=== PATIENT | female | born 1985 | race Caucasian/White ===

== ENCOUNTER 2024-01-26 10:44 | Emergency (ER) | payer OTHER, SELFPAY ==
[2024-01-26 10:59] VITALS: BP 155/111
[2024-01-26 11:22] VITALS: BP 125/95
--- NOTE | 2024-01-26 11:25 | ED.GENMED ---
History of Present Illness
General
Chief Complaint: Heart Rate Problem
Source: patient
Time Seen by Provider: 01/26/24 11:07
History of Present Illness
History of Present Illness:
38yoF with no significant past medical history presenting for evaluation of palpitations. Patient woke up this morning around 7:30am feeling aware of her heart beat and feeling like her heart was racing. She received an alert from her Apple Watch
stating that she was in atrial fibrillation. She went to the nearest urgent care who performed an EKG which confirmed atrial fibrillation. She was sent to the ED for evaluation. Patient is now asymptomatic and states her palpitations have resolved.
Symptoms lasted for about 2.5 hours in total. She denies any associated chest pain, dizziness, syncope.
Patient drank 1 glass of wine last night. She has been at a conference for the past 3 days and has had long days and more stress than usual. She had a similar episode of palpitations 1 week ago which she attributed to drinking an energy drink. She
was seen by a bucket pusher in 2016 for palpitations. She had a Holter monitor at that time which was normal. Her only medication is an oral contraceptive.
Phy Exam
General Physical Exam
General Presentation: well appearing and no apparent distress
General age: appears stated age
General Skin: warm and dry
General Habitus: normal
General Mental: alert
General Hydration: appears well hydrated
ENT Exam
ENT Exam: normocephalic
Cardiovascular Exam
Cardiovascular Exam: regular rate/rhythm, no edema and no murmur
Pulmonary Exam
Pulmonary Exam: lungs clear, no respiratory distress, no rales, no crackles, no rhonchi and no wheezing
[place] Coma Scale
Eye Opening: Spontaneous
Verbal Response: Oriented
Motor Response: Obeys Commands
GCS Total Score: 15
Skin Exam
Skin Exam: normal color and warm/dry
Psychiatric Exam
Psychiatric Exam: normal mood/affect
Course
Orders/Labs/Results
Orders:
Orders
01/26/24 10:46
EKG [Electrocardiogram (*1)] Urgent
Reason for Study: Atrial Fibrillation
EKG- Treatment ONCE
01/26/24 11:24
Cardiac Monitoring- Treatment ONCE
01/26/24 11:25
Test Result ONCE
01/26/24 11:44
Complete Blood Count/With Diff Urgent
Comprehensive Metabolic Panel Urgent
HCG, Serum Qualitative Screen Urgent
Magnesium Urgent
TSH Reflex To Free T4 Urgent
01/26/24 14:12
Troponin I Urgent
Abnormal Lab Results
01/26/24
11:44
BUN 19 H mg/dl
(7-17)
Glucose 100 H mg/dl
(70-99)
01/26/24 11:44
01/26/24 11:44
Vital Signs
Initial and Last Documented VS:
Initial Vital Signs
Temp Pulse Resp BP Pulse Ox
99.9 F 84 16 155/111 99
01/26/24 10:59 01/26/24 10:59 01/26/24 10:59 01/26/24 10:59 01/26/24 10:59
Last Documented Vital Signs
Temp Pulse Resp BP Pulse Ox
99.9 F 61 16 129/82 98
01/26/24 10:59 01/26/24 15:00 01/26/24 15:00 01/26/24 14:04 01/26/24 15:00
MDM/Problems Addressed
Differential Diagnosis Includes:
38yoF here for palpitations. Woke up this morning with palpitations. Apple Watch indicated afib and she went to urgent care and EKG confirmed afib. Currently asymptomatic and arrives in NSR. She is afebrile and hemodynamically stable. She is
well-appearing in no acute distress. Exam is reassuring. Differential diagnosis includes but is not limited to: Arrhythmia, electrolyte abnormality, thyroid dysfunction
Initial ED plan: Patient placed on classroom monitor. Check cardiac labs, magnesium, TSH, and EKG. IV fluid bolus.
*EKG
Interpreted by ED Provider?: Yes
EKG Intrepretation Date: 01/26/24
Heart Rate: 74
Rate: normal
Rhythm: sinus
[place]: normal axis
Interval: normal interval
QRS Pattern: normal QRS
Ischemia: no ischemia
*Critical Care Note
Total Time (30-74mins, 75-104mins- exclusive of procedures): Not Applicable
Update Note
Update Note:
Labs unremarkable including normal electrolytes and TSH. Troponin within normal limits. No episodes of atrial fibrillation during ED stay. She remains asymptomatic on multiple reassessments. [id number] score 0. Case was discussed with
cardiology who agrees with outpatient follow-up. She is stable for discharge. Advised close follow-up with PCP and cardiology. ED return precautions were discussed. She expressed understanding is agreeable to plan. She was discharged stable
condition.
ED Attending Note
-
Portions of this chart may have been created with voice recognition software.� Occasional wrong word or��sound alike� substitutions may have occurred due to the inherent limitations of voice recognition software.
Discharge Plan
Departure
Patient Disposition: Home (Routine Discharge)
Date of Disposition: 01/26/24
Time of Disposition: 15:05
Patient with high blood pressure during this ER visit?: No
Discharge Problem:
Atrial fibrillation
Instructions: Atrial Fibrillation (DC)
Referrals:
Madonna Velazquez DO [Family Provider] -
Tiago Tomlinson MD [Active] -
Activity Restrictions/Additional Instructions:
Please call today to schedule a follow-up with cardiology. Return to the ER with any new or worsening symptoms.
Interventions
Interventions:
*Risk Screen - Suicide Last Done: 01/26/24 10:59
*Neglect/Abuse Screening Last Done: 01/26/24 10:59
ED- Fall Risk Assessment Last Done: 01/26/24 12:44
*ED COVID-19 Vaccine History Last Done: 01/26/24 12:46
*Nursing Disposition Last Done: 01/26/24 15:14
ED- Cardiac Assessment Last Done: 01/26/24 11:24
ED- Pulmonary Assessment Last Done: 01/26/24 11:29
Discharge Date and Time
Discharge Date/Time: 01/26/24 15:16
Print Language: ALBANIAN
[2024-01-26 12:00] VITALS: BP 123/84
[2024-01-26 12:00] LABS: % Basophils 0.7 % (0-2); % Eosinophils 0.7 % (0-6); % Immature Granulocytes 0.3 % (0-0.5); % Lymphocytes 26.8 % (20.5-51.1); % Monocytes 5.4 % (1.7-9.3); % Neutrophils 66.1 % (42.2-75.2); Absolute Basophils 0.1 10^3/uL (0-0.2); Absolute Eosinophils 0.1 10^3/uL (0-0.7); Absolute Lymphocytes 1.9 10^3/uL (1.2-3.4); Absolute Monocytes 0.4 10^3/uL (0.1-0.6); Absolute Neutrophils 4.7 10^3/uL (1.4-6.5); Hematocrit 42.9 % (37.0-47.0); Hemoglobin 14.6 g/dL (12.0-16.0); Mean Corpuscular Hgb 30.9 pg (27.0-31.0); Mean Corpuscular Volume 90.9 fL (81.0-99.0); Mean Platelet Volume 9.8 fL (7.4-10.4); Nucleated Red Blood Cells % 0 %; Platelet Count 325 10^3/uL (130-400); Red Blood Cell Count 4.72 10^6/uL (4.20-5.40); Red Cell Dist. Width 12.3 % (11.5-14.5); White Blood Cell Count 7.2 10^3/uL (4.8-10.8)
[2024-01-26 12:10] LABS: HCG, Serum Qualitative Screen Negative
[2024-01-26 12:16] LABS: ALT (SGPT) 19 U/L (0-35); AST (SGOT) 23 U/L (14-36); Albumin 4.3 g/dl (3.5-5.0); Alkaline Phosphatase 50 U/L (38-126); Blood Urea Nitrogen 19 mg/dl (7-17); Calcium 9.8 mg/dl (8.4-10.2); Carbon Dioxide 24 mmol/L (22-30); Chloride 107 mmol/L (98-107); Glucose 100 mg/dl (70-99); Magnesium 2.1 mg/dl (1.6-2.3); Potassium 4.7 mmol/L (3.5-5.1); Sodium 143 mmol/L (135-145); Total Bilirubin 0.8 mg/dl (0.2-1.3); Total Protein 6.7 g/dl (6.3-8.2); eGFR > 60.00
[2024-01-26 12:45] LABS: TSH Reflex To Free T4 2.34 uIU/ml (0.47-4.68)
[2024-01-26 13:00] VITALS: BP 113/64
[2024-01-26 14:04] VITALS: BP 129/82
[2024-01-26 15:00] LABS: Troponin I < 0.012 ng/ml
== END 2024-01-26 15:16 | disposition home or self-care (01) ==
LOC: EMR 10:44
PROVIDERS: Physician Assistant; EMERGENCY PHYSICIAN Emergency Medicine; FAMILY PHYSICIAN Family Medicine
DX: I48.91 Unspecified atrial fibrillation (principal)
CPT/HCPCS: 99283; 80053; 83735; 84443; 84484; 84703; 85025; 93005